=== PATIENT | male | born 1945 | race Caucasian/White ===

== ENCOUNTER 2020-08-14 14:08 | Emergency (ER) | payer MEDICARE, SELFPAY ==
[2020-08-14 14:47] VITALS: BP 137/74; PULSE 75; RESP 18; TEMP 36.8; O2SAT 95; BMI 27.6
--- NOTE | 2020-08-14 15:34 | ED_ITS ---
HPI - Skin/Abscess/Foreign Bdy General Chief complaint: Skin/Abscess/Foreign Body Stated complaint: infection in pointer finger Time Seen by Provider: 08/14/20 15:32 Source: patient Mode of arrival: Ambulatory Limitations: no limitations History of Present Illness HPI narrative: Patient is a 75-year-old male who thinks that a couple days ago he got a metal splinter in his right index finger. He attempted to remove it on his own in thinks that he got all of it but is not 100% sure. Since that time his fingers become more red and swollen and today has a white area. He thinks he needs his tetanus shot updated is afebrile. Related Data Previous Rx's Medication Instructions Recorded doxycycline hyclate 100 mg PO BID 7 Days #14 tab 08/14/20 Review of Systems Constitutional Constitutional: Denies fever(s) Musculoskeletal Musculoskeletal: Denies tingling Comments: Swelling and redness and discomfort right index finger Integumentary/Breasts Comments: Redness the right index finger Neurologic Neurologic: Denies tingling Allergic/Immunologic Allergic/Immunologic: Denies urticaria Patient History Social History Smoking Status: Never smoker Smoking Status: Never smoker alcohol intake frequency: 0-2 drinks per day Substance Use Type: marijuana Exam Initial Vital Signs Initial Vital Signs: Vital Signs Temperature 98.2 F 08/14/20 14:47 Pulse Rate 75 08/14/20 14:47 Respiratory Rate 18 08/14/20 14:47 Blood Pressure 137/74 08/14/20 14:47 Pulse Oximetry 95 08/14/20 14:47 Const General: cooperative and comfortable Limitations: mental status not altered HENIN Head: normal to inspection and normocephalic Cardio Pulses: radial pulses present on the right Skin Other: Patient with circumferential swelling of his right index finger with an area of abscess on the volar aspect over the PIP joint. The redness does not extend past the MCP joint. There is redness that is mostly on the volar aspect in between the MCP and the DIP joint. Extrem General: capillary refill normal Psych Appearance: grossly normal and well kempt Procedures Abscess I/D I&D #1: Site: hand (Right index finger) Side (if applicable): right Local Anesthetic: lidocaine 1% and with bicarb Amount of anesthesia used (mL): 6 Technique: incised with #11 blade Irrigation: Yes Packing used?: none Nerve Block Nerve Block 1: Time out performed: Yes Local Anesthetic: lidocaine 1% and with bicarb Amount of anesthesia used (mL): 6 Side: right Nerve Blocks: digital (Index finger) Procedure Successful: Yes Patient Tolerated Procedure: Well Complications: none Course Orders Ordered: ED Orders 08/14/20 15:34 XR finger RT min 2V Stat Discontinued Medications Bacitracin (Bacitracin Oint 0.9 Gm Pckt) 1 applic TOP NOW ONE Stop: 08/14/20 15:35 Last Admin: 08/14/20 15:41 Dose: 1 applic Documented by: JENNIFER Diphtheria/Tetanus/Acell Pertussis (Tet,Diph,Pertuss(Acell),Vac/Pf 0.5 Ml Syringe) 0.5 ml IM .ONCE ONE Stop: 08/14/20 15:35 Last Admin: 08/14/20 15:41 Dose: 0.5 ml Documented by: JENNIFER Doxycycline Hyclate (Doxycycline Hyclate 100 Mg Tablet) 100 mg PO NOW ONE Stop: 08/14/20 16:37 Lidocaine/Sodium Bicarbonate (Lido 1%/Sod Bicarb 8.4% (10ml) 10 Ml Syringe) 10 ml INJ NOW ONE Stop: 08/14/20 15:35 Last Admin: 08/14/20 15:42 Dose: 10 ml Documented by: JENNIFER Vital Signs Vital signs: Vital Signs - 8 hr 08/14/20 14:47 Temperature 98.2 F Pulse Rate 75 Respiratory Rate 18 Blood Pressure 137/74 Pulse Oximetry 95 MDM - Skin/Abscess/Foreign Bdy Imaging Data Extremity x-ray #1: Radiologist's Impression: [address] [id number] ReportSigned Patient: Antonio Fernandez MMR#: [id number]: [id number]/Sex: 75 / MDate of Service: 08/14/20Loc: EDAccession Number: [id number] Procedure: XR finger RT min 2V Ordering Provider: Sylvain Garcia D.O. PROCEDURE: XR FINGER RT MIN 2V INDICATIONS: eval for FB at level of the PIP joint TECHNIQUE: AP hand, 2 views of the 2nd finger(s) acquired. COMPARISON: None. FINDINGS: Bones: No fractures or dislocations. No suspicious bony lesions. Age- appropriate bony degenerative changes are seen. Soft tissues: Soft tissue swelling is seen of the 2nd finger. No definite soft tissue gas can be seen. No radiopaque foreign bodies are seen. IMPRESSION: No radiopaque foreign bodies are seen. Second finger soft tissue swelling is seen. Dictated by: Dajuan Valenzuela M.D. on 08/14/2020 at 14:50 Approved by: Dajuan Valenzuela M.D. on 08/14/2020 at 14:51 MDM Narrative Medical decision making narrative: Patient has an obvious infection to his right index finger. He is circumferentially swollen but the erythema is located on the volar aspect. I have low suspicion for flexor tenosynovitis based on his exam today. The x-ray does not show any retained foreign bodies. The abscess was I indeed with return of purulent material. I did probe the wound in visually inspected the wound and there was no foreign body noted. Patient irrigated and cleanse the wound under tap water has well. The range of motion of the PIP joint was limited secondary to the swelling. Plan will be is to place him on antibiotics. He was given a 1st dose here and will provide a prescription for the remainder. He was given strict return precautions and care instructions. He expressed understanding agreement. Discharge Plan Departure Patient Disposition: Home Clinical Impression: Cellulitis Instructions: DI for Cellulitis -- Adult Activity Restrictions/Additional Instructions: I do recommend that you keep the area covered with antibiotic ointment and a bandage. You can shower like normal. You can also wash your hands with soap and water. Start taking the antibiotics as directed. Return to the emergency department for any new or worsening symptoms Prescriptions: New doxycycline hyclate 100 mg tablet 100 mg PO BID 7 Days Qty: 14 RF: 0
[2020-08-14] MEDS: TET,DIPH,PERTUSS(ACELL),VAC/PF 0.5 ML SYRINGE IM (15:41)
[2020-08-14] MEDS: BACITRACIN OINT 0.9 GM PCKT 1 APPLIC TOP (15:41)
[2020-08-14] MEDS: LIDO 1%/SOD BICARB 8.4% (10ML) 10 ML SYRINGE INJ (15:42)
[2020-08-14] MEDS: DOXYCYCLINE HYCLATE 100 MG TABLET PO (16:52)
[2020-08-14 17:02] VITALS: BP 154/81; PULSE 74; RESP 14; O2SAT 96
== END 2020-08-14 17:04 | disposition home or self-care (01) ==
PROVIDERS: Emergency Provider Emergency Medicine
DX: L03.011 Cellulitis of right finger (principal); Z23 Encounter for immunization
CPT/HCPCS: 10060; 73140; 90471; 99283; 90715